=== PATIENT | female | born 1975 | race Caucasian/White ===

== ENCOUNTER 2016-10-15 07:52 | Emergency (ER) | payer OTHER ==
[~2016-10-15] VITALS: Ht 157.5 cm; Wt 73.0 kg
[~2016-10-15 07:52] MED LIST: SULF-154 PO
[2016-10-15 07:56] VITALS: BP 128/96; PULSE 75; RESP 16; TEMP 98.1; O2SAT 98
--- NOTE | 2016-10-15 08:35 | PD ---
HPI Chief Complaint: Cold / Flu Symptoms Time Seen by Provider: 08:17 Travel History International Travel<30 days: No Contact w/Intl Traveler<30days: No Traveled to known affect area: No History of Present Illness HPI She complains of runny nose and congestion. Had occasional cough. No fever. Symptoms of mild severity PFSH Past Medical History Anxiety: Yes Depression: Yes Diminished Hearing: No Influenza Vaccination: No ?: Not LMP: NOW : 5 Para: 3 Past Surgical History Section: Yes Other Surgery: Yes (GANGLLION CYST) Family History Family Hypercholesterolemia: Yes (heart disease) Social History Alcohol Use: Yes (occ) Tobacco Use: Yes (1 PPD) Substance Use: No Allergies-Medications (Allergen,Severity, Reaction): Coded Allergies: Keflex (Verified Allergy, Intermediate, HIVES, 10/15/16) Reported Meds & Prescriptions Reported Meds & Active Scripts Active No Active Prescriptions or Reported Medications Review of Systems General / Constitutional: No: Fever HENT: Positive: Rhinorrhea, No: Headaches Cardiovascular: No: Chest Pain or Discomfort Physical Exam Narrative RESPIRATORY: Respiratory effort unlabored, no retractions or use of accessory muscles. Breath sounds are clear and symmetric. NECK: Symmetrical appearance, midline trachea. No mass or crepitus. Thyroid without enlargement, tenderness, or mass. SKIN: Inspection shows no rash or ulcers. Palpation shows no induration or nodules. TMs and throat clear, nares shows rhinorrhea Data Data Last Documented VS Vital Signs Date Time Temp Pulse Resp B/P Pulse Ox O2 Delivery O2 Flow Rate FiO2 10/15/16 07:56 98.1 75 16 128/96 98 MDM Medical Decision Making Medical Screen Exam Complete: Yes Emergency Medical Condition: Yes Medical Record Reviewed: Yes Differential Diagnosis URI, pharyngitis, bronchitis Narrative Course I have reviewed the patient's electronic medical record. Presentation most consistent with an acute viral rhinitis, sinusitis. No indication for antibiotics Supportive care discussed Diagnosis Primary Impression: Viral upper respiratory tract infection Additional Instructions: The patient was advised to follow up with their physician and return if they worsen. Med/Other Pt SpecificInfo: Other Scripts No Active Prescriptions or Reported Meds Disposition: 01 DISCHARGE HOME Condition: Stable Abarm Ramirez MD Oct 15, 2016 08:35
== END 2016-10-15 08:58 | disposition home or self-care (01) ==
LOC: PHED 07:52
DX: J06.9 Acute upper respiratory infection, unspecified (principal); B34.9 Viral infection, unspecified; R05 Cough; F17.210 Nicotine dependence, cigarettes, uncomplicated
CPT/HCPCS: 99283

== ENCOUNTER 2017-02-26 12:48 | Emergency (ER) | payer OTHER ==
[~2017-02-26] VITALS: Ht 157.5 cm; Wt 72.5 kg
[2017-02-26 12:49] VITALS: BP 118/78; PULSE 74; RESP 15; TEMP 98.6; O2SAT 98
[2017-02-26] MEDS ORDERED: AUGM875T3 PO (13:10)
--- NOTE | 2017-02-26 13:10 | PD ---
HPI Chief Complaint: Cold / Flu Symptoms Time Seen by Provider: 13:00 Travel History International Travel<30 days: No Contact w/Intl Traveler<30days: No Traveled to known affect area: No History of Present Illness HPI 41-year-old female presents to the emergency department for evaluation of sinus pain and tenderness 2 weeks. She reports she's had upper respiratory-like illness for the last 2 weeks. She reports that over the last several days her sinuses become increasingly more painful and tender with purulent nasal drainage. She reports subjective fevers, mild frontal headache over the sinuses , no nausea/vomiting, chest pain/shortness of breath or abdominal pain. She reports a history of sinus infections. She denies any significant past medical history. Allergies to Keflex. Reports she's taken amoxicillin without any reaction. PFS Past Medical History Medical History: Denies Significant Hx Anxiety: Yes Depression: Yes Diminished Hearing: No Tetanus Vaccination: < 5 Years Influenza Vaccination: No ?: Not LMP: 2 weeks ago : 5 Para: 3 Past Surgical History Section: Yes Other Surgery: Yes (GANGLLION CYST) Family History Family Hypercholesterolemia: Yes (heart disease) Social History Alcohol Use: Yes (occ) Tobacco Use: Yes (1 PPD) Substance Use: No Allergies-Medications (Allergen,Severity, Reaction): Coded Allergies: Keflex (Verified Allergy, Intermediate, HIVES, 02/26/17) Reported Meds & Prescriptions Reported Meds & Active Scripts Active No Active Prescriptions or Reported Medications Review of Systems Except as stated in HPI: all other systems reviewed are Neg Physical Exam Narrative GENERAL: Well-nourished, well-developed patient. SKIN: Focused skin assessment warm/dry. HEAD: Normocephalic. Tender over frontal and maxillary sinuses. EYES: No scleral icterus. No injection or drainage. NECK: Supple, trachea midline. No JVD or lymphadenopathy. CARDIOVASCULAR: Regular rate and rhythm without murmurs, gallops, or rubs. RESPIRATORY: Breath sounds equal bilaterally. No accessory muscle use. GASTROINTESTINAL: Abdomen soft, non-tender, nondistended. MUSCULOSKELETAL: No cyanosis, or edema. BACK: Nontender without obvious deformity. No CVA tenderness. Data Data Last Documented VS Vital Signs Date Time Temp Pulse Resp B/P Pulse Ox O2 Delivery O2 Flow Rate FiO2 02/26/17 12:49 98.6 74 15 118/78 98 MDM Medical Decision Making Medical Screen Exam Complete: Yes Emergency Medical Condition: Yes Medical Record Reviewed: Yes Differential Diagnosis Sinusitis, upper respiratory infection, Narrative Course 41-year-old female presents emergency department for evaluation of sinus pain and pressure with mucopurulent drainage. She reports that she's had no upper respiratory-like illness with nasal congestion and cough and sore throat for about 2 weeks. Over the last several days her sinuses became increasingly more painful similar to previous sinus infections. Patient's physical exam is consistent with sinusitis patient be treated with Augmentin and instructed to follow-up with her primary care doctor. Diagnosis Primary Impression: Sinusitis Qualified Code: J32.0 - Maxillary sinusitis, unspecified chronicity Referrals: Primary Care Physician Scripts Amoxicillin-Clavulanate (Augmentin)875-125 Mg Tab1 Tab PO BID #10 TAB Ref 0 Prov:Rossana Maria 02/26/17 Disposition: 01 DISCHARGE HOME Condition: Stable Rossana Maria Feb 26, 2017 13:10
== END 2017-02-26 13:28 | disposition home or self-care (01) ==
LOC: PHEFT 12:48
DX: J32.9 Chronic sinusitis, unspecified (principal); F17.210 Nicotine dependence, cigarettes, uncomplicated
CPT/HCPCS: 99283

== ENCOUNTER 2017-07-18 08:41 | Emergency (ER) | payer MEDICAID ==
[~2017-07-18] VITALS: Ht 157.5 cm; Wt 77.5 kg
[~2017-07-18 08:41] MED LIST changes: +AUGM875T3 PO; -SULF-154 PO
[2017-07-18 08:45] VITALS: BP 160/77; PULSE 61; RESP 16; TEMP 98.4; O2SAT 97
[2017-07-18] MEDS ORDERED: PROM6.256 PO (09:08)
[2017-07-18] MEDS ORDERED: ALBUAER3 INH (09:08)
[2017-07-18] MEDS ORDERED: AZIT250T3 PO (09:08)
--- NOTE | 2017-07-18 09:08 | PD ---
HPI Chief Complaint: Cold / Flu Symptoms Time Seen by Provider: 08:59 Travel History International Travel<30 days: No Contact w/Intl Traveler<30days: No Traveled to known affect area: No History of Present Illness HPI This is a 41-year-old female with a [id number] smoking history who presents to the emergency department with cough, constant, moderate severity that's been going on for 2 weeks, worse in the evenings, associated with some subjective chills, sore throat and rhinorrhea. She denies any chest pain or shortness of breath. She's had no sick contacts. PFSH Past Medical History Anxiety: Yes Depression: Yes Diminished Hearing: No ?: Not LMP: 07/14/2017 : 5 Para: 5 Past Surgical History Section: Yes Other Surgery: Yes (GANGLLION CYST) Family History Family Hypercholesterolemia: Yes (heart disease) Social History Alcohol Use: Yes (occ) Tobacco Use: Yes (1 PPD) Substance Use: No Allergies-Medications (Allergen,Severity, Reaction): Coded Allergies: cephalexin (Unverified Allergy, Intermediate, HIVES, 07/18/17) Reported Meds & Prescriptions Reported Meds & Active Scripts Active Review of Systems Except as stated in HPI: all other systems reviewed are Neg Physical Exam Narrative GENERAL:Well appearing, no acute distress SKIN: Focused skin assessment warm and dry. HEAD: Atraumatic. Normocephalic. EYES: Pupils equal and round. No injection or drainage. ENT: Moist mucous membranes. Mild posterior pharyngeal erythema with no exudates. NECK: Trachea midline. CARDIOVASCULAR: Regular rate and rhythm. No murmur appreciated. RESPIRATORY: Clear to auscultation. Breath sounds equal bilaterally. GASTROINTESTINAL: Abdomen soft, non-tender, nondistended. MUSCULOSKELETAL: No obvious deformities. NEUROLOGICAL: Awake and alert. No obvious cranial nerve deficits. Moving all extremities. PSYCHIATRIC: Appropriate mood and affect; insight and judgment normal. Data Data Last Documented VS Vital Signs Date Time Temp Pulse Resp B/P (MAP) Pulse Ox O2 Delivery O2 Flow Rate FiO2 07/18/17 08:45 98.4 61 16 160/77 (104) 97 MDM Medical Decision Making Medical Screen Exam Complete: Yes Emergency Medical Condition: Yes Interpretation(s) Afebrile, no tachycardia, hypertensive Differential Diagnosis Bronchitis, pneumonia, upper respiratory infection Narrative Course This is a 41-year-old female who has a significant smoking history who presents to the emergency department with 2 weeks of cough. I suspect she has bronchitis. She has a benign exam. She'll be discharged on albuterol, antibiotic and cough suppressant. Diagnosis Primary Impression: Bronchitis Patient Instructions: General Instructions Additional Instructions: If you develop severe chest pain, shortness of breath, sweating, lightheadedness , dizziness or difficulty breathing return to the emergency department immediately. Followup with your primary care physician in 2-3 days if your symptoms are not resolved. Med/Other Pt SpecificInfo: Prescription(s) given Scripts Promethazine-Codeine Liq (Promethazine-Codeine Liq) 6.25-10 Mg/5 Ml Syrp 5 ML PO Q6H Y for COUGH AND/OR COLD SYMPTOMS, #100 ML 0 Refills Prov: Destinee Porter MD 07/18/17 Azithromycin (Azithromycin) 250 Mg Tab 250 MG PO DIRECTED for Infection, #6 TAB 0 Refills Take 2 tabs (500 mg) on day 1 then 1 tab daily x 4 days. Prov: Destinee Porter MD 07/18/17 Albuterol 8.5 GM Inh (Proair Hfa 8.5 GM Inh) 90 Mcg/Act Aer 2 PUFF INH Q4-6H Y for SHORTNESS OF BREATH, #1 INHALER 0 Refills 108 mcg/actuation Prov: Destinee Porter MD 07/18/17 Disposition: 01 DISCHARGE HOME Condition: Stable Destinee Porter MD Jul 18, 2017 09:08
== END 2017-07-18 09:28 | disposition home or self-care (01) ==
LOC: PHED 08:41
DX: J40 Bronchitis, not specified as acute or chronic (principal); R07.0 Pain in throat; J34.89 Other specified disorders of nose and nasal sinuses; F17.200 Nicotine dependence, unspecified, uncomplicated; Z86.59 Personal history of other mental and behavioral disorders
CPT/HCPCS: 99284

== ENCOUNTER 2017-11-19 12:59 | Emergency (ER) | payer MEDICAID ==
[~2017-11-19] VITALS: Ht 157.5 cm; Wt 74.5 kg
[~2017-11-19 12:59] MED LIST changes: +ALBUAER3 INH; -AUGM875T3 PO; +AZIT250T3 PO; +PROM6.256 PO
[2017-11-19 13:00] VITALS: BP 150/95; PULSE 88; RESP 16; TEMP 98.3; O2SAT 98
[2017-11-19 13:18] LABS: BILIRUBIN, URINE NEG (NEG); BLOOD, URINE LARGE (NEG); GLUCOSE,URINE NEG (NEG); KETONE, URINE NEG (NEG); NITRITE,URINE NEG (NEG); URINE LEUKOCYTE ESTERASE NEG (NEG)
[2017-11-19 13:23] LABS: URINE COLOR RED (YELLW/STRAW)
[2017-11-19 13:24] LABS: RBC, URINE INNUM /hpf (0-3)
[2017-11-19] MEDS ORDERED: PHEN0.4T PO (14:50)
[2017-11-19] MEDS ORDERED: BACT800T5 PO (14:50)
--- NOTE | 2017-11-19 14:51 | PD ---
HPI Chief Complaint: Complaint Time Seen by Provider: 14:10 Travel History International Travel<30 days: No Contact w/Intl Traveler<30days: No Traveled to known affect area: No History of Present Illness HPI 42-year-old female here for evaluation of urinary frequency and dysuria 1 day. Denies fever or chills. No abdominal pain or flank pain. No vaginal discharge. Symptom severity is mild. She believes she has UTI. Cannot recall having a UTI in the past. No aggravating or alleviating factors. PFSH Past Medical History Anxiety: Yes Depression: Yes Diminished Hearing: No Influenza Vaccination: No ?: Not LMP: NOW : 5 Para: 5 Past Surgical History Section: Yes Other Surgery: Yes (GANGLLION CYST) Family History Family Hypercholesterolemia: Yes (heart disease) Social History Alcohol Use: Yes (occ) Tobacco Use: Yes (1 PPD) Substance Use: No Allergies-Medications (Allergen,Severity, Reaction): Coded Allergies: cephalexin (Unverified Allergy, Intermediate, HIVES, 11/19/17) Reported Meds & Prescriptions Reported Meds & Active Scripts Active No Active Prescriptions or Reported Medications Review of Systems Except as stated in HPI: all other systems reviewed are Neg General / Constitutional: No: Fever Gastrointestinal: No: Abdominal Pain Genitourinary: Positive: Urgency, Frequency, Dysuria Physical Exam Narrative GENERAL: Alert and well-appearing 6-year-old female SKIN: Warm and dry. HEAD: Normocephalic. EYES: No scleral icterus. No injection or drainage. NECK: Supple CARDIOVASCULAR: Regular rate and rhythm RESPIRATORY: Breath sounds equal bilaterally. No accessory muscle use. GASTROINTESTINAL: Abdomen soft, non-tender, nondistended. MUSCULOSKELETAL: No cyanosis, or edema. BACK: No CVA tenderness. Data Data Last Documented VS Vital Signs Date Time Temp Pulse Resp B/P (MAP) Pulse Ox O2 Delivery O2 Flow Rate FiO2 11/19/17 13:00 98.3 88 16 150/95 (113) 98 Orders Orders Urinalysis - C+S If Indicated (11/19/17 13:02) Urine Culture (11/19/17 13:04) Labs Laboratory Tests Test 11/19/17 13:04 Urine Collection Type CLEAN CATCH Urine Color RED Urine Turbidity MARKED Urine pH 6.0 Urine Specific [place] 1.025 Urine Protein 100 mg/dL Urine Glucose (UA) NEG mg/dL Urine Ketones NEG mg/dL Urine Occult Blood LARGE Urine Nitrite NEG Urine Bilirubin NEG Urine Leukocyte Esterase NEG Urine RBC INNUM /hpf Urine WBC 20-24 /hpf Urine Squamous Epithelial Cells 6-8 /hpf Microscopic Urinalysis Comment CULTURE INDICATED Urine Collection Time 13:04 [facility] Medical Decision Making Medical Screen Exam Complete: Yes Emergency Medical Condition: Yes Differential Diagnosis UTI, pyelonephritis, vaginitis Narrative Course 42-year-old female here with UTI like symptoms. She is well-appearing. Vital signs are stable. No CVA tenderness. UA: Turbid, large occult blood, and numerous RBCs, WBC 20-24 (she is currently on menses) She'll be treated for UTI Diagnosis Primary Impression: UTI (urinary tract infection) Qualified Codes: N39.0 - Urinary tract infection, site not specified; R31.9 - Hematuria, unspecified Referrals: Primary Care Physician Additional Instructions: Antibiotics as directed. Drink plenty of fluid. Return if he had new or worsening symptoms Scripts Phenazopyridine (Pyridium) 100 Mg Tab 100 MG PO Q8H Y for DYSURIA, #6 TAB 0 Refills Prov: Rossana Maria 11/19/17 Sulfamethoxazole-Trimethoprim (Bactrim DS) 800-160 Mg Tab 1 TAB PO BID for Infection, #10 TAB 0 Refills Prov: Rossana Maria 11/19/17 Disposition: 01 DISCHARGE HOME Condition: Stable Rossana Maria Nov 19, 2017 14:51
== END 2017-11-19 14:58 | disposition home or self-care (01) ==
LOC: PHED 12:59 → PHEFT 14:58
DX: N39.0 Urinary tract infection, site not specified (principal); B96.4 Proteus (mirabilis) (morganii) as the cause of diseases classified elsewhere; R31.9 Hematuria, unspecified; F32.9 Major depressive disorder, single episode, unspecified; F41.9 Anxiety disorder, unspecified; F17.210 Nicotine dependence, cigarettes, uncomplicated; Z88.8 Allergy status to other drugs, medicaments and biological substances
CPT/HCPCS: 81001; 87077; 87086; 87186; 99283

== ENCOUNTER 2017-12-23 08:05 | Emergency (ER) | payer MEDICAID ==
[~2017-12-23] VITALS: Ht 154.9 cm; Wt 73.0 kg
[~2017-12-23 08:05] MED LIST changes: -ALBUAER3 INH; -AZIT250T3 PO; +BACT800T5 PO; +PHEN0.4T PO; -PROM6.256 PO
[2017-12-23 08:32] VITALS: BP 151/55; PULSE 60; RESP 16; TEMP 98.5; O2SAT 98
[2017-12-23 08:51] LABS: BILIRUBIN, URINE NEG (NEG); BLOOD, URINE NEG (NEG); GLUCOSE,URINE NEG (NEG); KETONE, URINE NEG (NEG); NITRITE,URINE NEG (NEG); URINE COLOR YELLOW (YELLW/STRAW); URINE LEUKOCYTE ESTERASE NEG (NEG)
[2017-12-23 08:56] LABS: AMORPHOUS SEDIMENT, URINE LARGE; SQUAMOUS EPITHELIAL CELL URINE > 8 /hpf (0-5); WBC, URINE 0-2 /hpf (0-5)
[2017-12-23] MEDS ORDERED: ROBA750T PO (10:01)
[2017-12-23] MEDS ORDERED: IBUP1TAB7 PO (10:01)
--- NOTE | 2017-12-23 10:03 | PD ---
HPI Chief Complaint: Complaint Time Seen by Provider: 09:44 Travel History International Travel<30 days: No Contact w/Intl Traveler<30days: No Traveled to known affect area: No History of Present Illness HPI 42-year-old female here with low back pain that radiates down into the legs 3 days. She is also reporting some mild dysuria and concern she may have a UTI. She was treated for UTI last month in the ED. She denies fever or chills. She reports the pain is located in the low back and radiates down both buttocks into the thighs. Pain is worse with movement and slightly relieved with rest. Severity [id number]. She denies fever, chills, abdominal pain, flank pain , vaginal discharge. PFSH Past Medical History Medical History: Denies Significant Hx Anxiety: Yes Depression: Yes Diminished Hearing: No ?: Not : 5 Para: 5 Past Surgical History Section: Yes Other Surgery: Yes (GANGLLION CYST) Family History Family Hypercholesterolemia: Yes (heart disease) Social History Alcohol Use: Yes (occ) Tobacco Use: Yes (1 PPD) Substance Use: No Allergies-Medications (Allergen,Severity, Reaction): Coded Allergies: cephalexin (Unverified Allergy, Intermediate, HIVES, 12/23/17) Reported Meds & Prescriptions Reported Meds & Active Scripts Active No Active Prescriptions or Reported Medications Review of Systems Except as stated in HPI: all other systems reviewed are Neg General / Constitutional: No: Fever Eyes: No: Visual changes HENT: No: Headaches Cardiovascular: No: Chest Pain or Discomfort Respiratory: No: Shortness of Breath Gastrointestinal: No: Abdominal Pain Genitourinary: Positive: Dysuria Musculoskeletal: Positive: Pain Skin: No Rash Physical Exam Narrative GENERAL: Alert well-appearing 42-year-old female SKIN: Warm and dry. HEAD: Normocephalic. EYES: No injection or drainage. NECK: Supple. CARDIOVASCULAR: Regular rate and rhythm without murmurs, gallops, or rubs. RESPIRATORY: Breath sounds equal bilaterally. No accessory muscle use. GASTROINTESTINAL: Abdomen soft, non-tender, nondistended. MUSCULOSKELETAL: No cyanosis, or edema. Normal strength and sensation in lower extremities. 2+ DTRs. BACK:+TTP lumbar paraspinous musculature. No CVA tenderness. Without obvious deformity. Data Data Last Documented VS Vital Signs Date Time Temp Pulse Resp B/P (MAP) Pulse Ox O2 Delivery O2 Flow Rate FiO2 12/23/17 08:32 98.5 60 16 151/55 (87) 98 Room Air Orders Orders Urinalysis - C+S If Indicated (12/23/17 08:35) Ed Urine Pregnancytest Poc (12/23/17 08:37) Labs Laboratory Tests Test 12/23/17 08:15 Urine Collection Type CLEAN CATCH Urine Color YELLOW Urine Turbidity SL CLOUDY Urine pH 6.0 Urine Specific [place] 1.025 Urine Protein NEG mg/dL Urine Glucose (UA) NEG mg/dL Urine Ketones NEG mg/dL Urine Occult Blood NEG Urine Nitrite NEG Urine Bilirubin NEG Urine Urobilinogen 0.2 MG/DL Urine Leukocyte Esterase NEG Urine WBC 0-2 /hpf Urine Squamous Epithelial Cells > 8 /hpf Urine Amorphous Sediment LARGE Microscopic Urinalysis Comment CULT NOT INDICATED Urine Collection Time 0815 [facility] Medical Decision Making Medical Screen Exam Complete: Yes Emergency Medical Condition: Yes Differential Diagnosis UTI, pyelonephritis, Lumbar strain, sciatica Narrative Course This is a 42-year-old female here with lumbar radiculopathy and complains of mild dysuria. UA is negative for infection. Vital signs are stable. Patient is nontoxic-appearing. She'll be treated for lumbar strain with strict return precautions. Diagnosis Primary Impression: Low back pain Qualified Codes: M54.40 - Lumbago with sciatica, unspecified side Referrals: Primary Care Physician Additional Instructions: Medication as directed. Avoid heavy lifting or strenuous activity. Return to the emergency department if he developed new or worsening symptoms such as fever, chills, increasing back pain, increasing dysuria Scripts Methocarbamol (Robaxin) 750 Mg Tab 750 MG PO QID for Muscle Spasm, #12 TAB 0 Refills Prov: Rossana Maria 12/23/17 Ibuprofen (Ibuprofen) 800 Mg Tab 800 MG PO Q6HR Y for PAIN, #40 TAB 0 Refills Prov: Rossana Maria 12/23/17 Disposition: 01 DISCHARGE HOME Condition: Stable Rossana Maria Dec 23, 2017 10:03
[2017-12-23 10:10] VITALS: BP 110/72
== END 2017-12-23 10:11 | disposition home or self-care (01) ==
LOC: PHED 08:05 → PHEFT 10:11
DX: M54.5 Low back pain (principal); R30.0 Dysuria; F41.9 Anxiety disorder, unspecified; F32.9 Major depressive disorder, single episode, unspecified; F17.200 Nicotine dependence, unspecified, uncomplicated; Z87.440 Personal history of urinary (tract) infections; Z88.8 Allergy status to other drugs, medicaments and biological substances
CPT/HCPCS: 81001; 84703; 99283